=== PATIENT | male | born 1975 | race Hispanic/Latino ===

== ENCOUNTER 2018-02-03 14:15 | Emergency (ER) | payer BC ==
[~2018-02-03] VITALS: Ht 165.1 cm; Wt 64.0 kg
[~2018-02-03 14:15] MED LIST: MAALOX1 ML PO
[2018-02-03] MEDS ORDERED: NAPROSYN500 MG PO (17:09)
[2018-02-03 17:24] VITALS: BP 147/90
== END 2018-02-03 17:25 | disposition home or self-care (01) ==
LOC: EME 14:15
PROC: 2W3RX1Z Immobilization of Left Lower Leg using Splint (ICD-10-PCS; principal; 2018-02-03)
DX: S93.602A Unspecified sprain of left foot, initial encounter (principal); W11.XXXA Fall on and from ladder, initial encounter; Y93.H9 Activity, other involving exterior property and land maintenance, building and construction; Y92.008 Other place in unspecified non-institutional (private) residence as the place of occurrence of the external cause; Z90.49 Acquired absence of other specified parts of digestive tract
CPT/HCPCS: 73630